=== PATIENT | female | born 1985 | race Caucasian/White ===

== ENCOUNTER 2018-04-12 15:55 | Emergency (ER) | payer MEDICAID ==
[~2018-04-12] VITALS: Ht 152.4 cm; Wt 58.1 kg
[2018-04-12 16:05] VITALS: Ht 152.4 cm; Wt 58.1 kg
[2018-04-12 17:03] VITALS: BP 101/66
== END 2018-04-12 17:03 | disposition home or self-care (01) ==
LOC: ED 15:55
DX: S16.1XXA Strain of muscle, fascia and tendon at neck level, initial encounter (principal); S39.012A Strain of muscle, fascia and tendon of lower back, initial encounter; Z90.49 Acquired absence of other specified parts of digestive tract; V49.88XA Car occupant (driver) (passenger) injured in other specified transport accidents, initial encounter; Y93.I9 Activity, other involving external motion; Y92.413 State road as the place of occurrence of the external cause; Y99.8 Other external cause status